=== PATIENT | male | born 1990 | race Caucasian/White ===

== ENCOUNTER → 2017-11-26 16:23 | Outpatient (REF) | payer OTHER, SELFPAY ==
[2017-11-15 11:33] LABS: Copper, Serum or Plasma 127 ug/dL (72-166)
== END ==
LOC: LABSPEC 16:23
DX: R20.9 Unspecified disturbances of skin sensation (principal)
CPT/HCPCS: 82525

== ENCOUNTER 2018-07-15 09:13 | Emergency (ER) | payer OTHER, SELFPAY ==
[2018-07-15 09:14] VITALS: BP 129/87; PULSE 79; RESP 16; TEMP 36.8; O2SAT 99; BMI 28.5
--- NOTE | 2018-07-15 09:29 | RAD_ITS ---
STUDY: X-RAY CHEST REASON FOR EXAM: Female, 28 years old. Chest pain. TECHNIQUE: Single AP portable view of the chest. COMPARISON: Comparison is made with prior study dated June 10, 2015. FINDINGS: EKG electrodes are seen. The lungs are clear and expanded. There is no demonstrated pleural abnormality. Normal size heart. Normal mediastinum and brenden. Normal visualized pulmonary arteries. Normal visualized aortic arch and descending thoracic aorta. Normal visualized thoracic spine. Normal visualized ribs, clavicles, and shoulders. There is no demonstrated abnormality of the visualized soft tissue structures of the upper abdomen. RAD/Chest 1 View (Portable) IMPRESSION: Normal x-ray examination of the chest. Electronically Signed: Alexys Brewster MD at 10:05 EST Tel [phone], Service support ,
--- NOTE | 2018-07-15 09:29 | EKG12_ITS ---
Test Reason : CP Blood Pressure : / mmHG Vent. Rate : 083 BPM Atrial Rate : 083 BPM P-R Int : 128 ms QRS Dur : 078 ms QT Int : 400 ms P-R-T Axes : 050 032 050 degrees QTc Int : 470 ms Normal sinus rhythm Normal ECG Confirmed by DEA DUMONT MD ([id number]), video tape editor SHOLA BORDEN ([id number] on 07/17/2018 3:22:15 PM Referred By: VICKIE Confirmed By:DEA DUMONT MD
--- NOTE | 2018-07-15 09:40 | ED.DCSUM_ITS ---
- ER Visit Summary Date of Service: 07/15/18 Chief Complaint: Dizzy History of Present Illness: The patient is a 28 F with dizziness that started around 8 AM this morning while sitting at work. She also had chest and upper abdominal pain. She was sweaty and felt her heart racing. Her hands were numb and locking up. She had nausea and vomiting. She has had similar symptoms in the past with POTS. She also has a history of fibromyalgia, chronic Lyme disease, mitral valve prolapse, hypertension, and ADHD. Physical Examination: Afebrile and vital signs unremarkable. Patient alert and oriented. Head and neck normal inspection. HEENT exam unremarkable. Neck is nontender. Heart regular rate and rhythm. Lungs clear. Abdomen soft and nontender. No focal or lateralizing neurologic arise grossly. Cranial nerves grossly intact. Skin appears normal in color without rash, pallor, or diaphoresis. Test Results: EKG showed sinus rhythm at a rate of 83. No sign of acute ischemic or infarction changes. Laboratory studies, chest x-ray, and orthostatic vital signs pending at the time of this dictation. Emergency Department Course and Treatment: Patient was placed on a monitor. Treated with normal saline IV, morphine, and Zofran. Will reassess. Orthostatic vital signs show tachycardia, but her blood pressure was stable. Her chest x-ray was unremarkable. Laboratory studies showed a white count 11.2 and glucose 126. Liver panel and lipase normal. Troponin normal. test negative. Patient felt better after fluids and pain medication. I am not sure what is causing her symptoms. It may be an exacerbation of 1 of her chronic disease processes. She may be coming down with a viral infection. I have nothing to suggest any [employer], ACS, PE, thoracic aortic pathology or any significant res piratory, vascular, or GI pathology. I believe the patient is appropriate for outpatient follow-up. Treatment Plan: As above Disposition: Discharged Impression: 1. Dizziness This note was generated with [employer] dictation software. It may contain incorrect words, spelling, and punctuation that were not noted in review of the chart prior to signing ED Disposition - Plan for ED Patient: Disposition: Home or Assisted Living Chief Complaint: Chest Pain Instructions: ED Dizziness [facility] Referrals: Valentín Cardoso DO [Primary Care Provider] -
[2018-07-15] MEDS: 0.9% Normal Saline 1,000 ML 1000 ML IV (09:49)
[2018-07-15] MEDS: Morphine 4 MG/ML Syringe IV (09:49)
[2018-07-15] MEDS: Ondansetron 4 MG/2 ML Vial IV (09:49)
[2018-07-15 09:52] LABS: Absolute Lymphocyte Count 2.94 X10^3/ul (0.83-4.51); Absolute Neutrophil Count 7.1 X10^3/uL (2.0-7.7); Basophil# 0.03 X10^3/uL; Basophil% 0.3 % (0-1); Eosinophil# 0.06 X10^3/uL; Eosinophils% 0.5 % (0-5); Hematocrit 42.8 % (37-47); Hemoglobin 14.5 g/dl (12.0-15.0); Lymphocyte # 2.94 X10^3/ul (4.0); Lymphocyte % 26.4 % (19-41); Mean Corp Hgb Conc 33.9 g/gl (32-36); Mean Corpuscular Hgb 30.7 pg (27.0-32.0); Mean Corpuscular Volume 90.5 fL (81-99); Neutrophil % 63.6 % (47-70); POSITIVE COUNT NO; POSITIVE DIFFERENTIAL NO; POSITIVE MORPHOLOGY NO; Platelet Count 411 K/mm3 (150-450); RBC Distribution Width CV 12.3 % (11.6-14.6); RBC Distribution Width SD 40.6 fl (35.1-43.9); Red Blood Count 4.73 M/mm3 (4.2-5.4); White Blood Count 11.2 K/mm3 (4.4-11.0)
[2018-07-15 09:54] VITALS: O2SAT 95
[2018-07-15 10:06] LABS: ALB/GLOB Ratio 0.8 RATIO (0.9-2.4); AST(SGOT) 17 U/L (15-37); Alanine Aminotransfer ALT/SGPT 28 U/L (13-56); Albumin, Serum 3.9 g/dL (3.2-5.0); Alkaline Phosphatase 116 U/L (45-117); Anion Gap 13 (5-15); BUN 11 mg/dL (7-18); BUN/Creat Ratio 11.1 RATIO (10-20); Calcium,Total 9.8 mg/dL (8.5-10.1); Chloride 102 mmol/L (98-107); Creatinine, Serum 0.99 mg/dL (0.55-1.02); EST Glomerular Filtration Rate 70 mL/min (>60); Est Glom Filt Rate - Afr Amer 85 mL/min (>60); Globulin 4.8 g/dL (2.2-4.2); Glucose 126 mg/dL (74-106); Lipase 335 U/L (73-393); Protein, Total 8.7 g/dL (6.4-8.2); Sodium Level 136 mmol/L (136-145)
[2018-07-15 10:08] VITALS: BP 154/114; BP 155/103; BP 165/145; PULSE 109; PULSE 87; PULSE 92
[2018-07-15 10:14] LABS: Pregnancy, Serum, hCG Quali. NEGATIVE Negative (0-9 Nonpreg)
[2018-07-15 10:54] VITALS: BP 137/100; PULSE 77; RESP 17; O2SAT 100
--- NOTE | 2018-07-15 11:23 | ED.DEP ---
ED Disposition - Plan for ED Patient: Chief Complaint: Chest Pain Instructions: ED Dizziness [facility] Referrals: Valentín Cardoso DO [Primary Care Provider] -
[2018-07-15 11:25] VITALS: BP 138/79; PULSE 72; RESP 15; O2SAT 98
== END 2018-07-15 11:27 | disposition home or self-care (01) ==
LOC: ED 09:48
PROVIDERS: Emergency Provider Emergency Medicine; Family Provider Family Medicine; PCP Family Medicine
DX: R42 Dizziness and giddiness (principal); M79.7 Fibromyalgia; A69.20 Lyme disease, unspecified; I10 Essential (primary) hypertension; R11.2 Nausea with vomiting, unspecified; R10.9 Unspecified abdominal pain; R07.9 Chest pain, unspecified; F90.9 Attention-deficit hyperactivity disorder, unspecified type; I34.1 Nonrheumatic mitral (valve) prolapse
CPT/HCPCS: 71045; 80053; 83690; 84484; 84703; 85025; 93005; 96361; 96374; 96375; 99285; J7030; A4216; J2405

== ENCOUNTER → 2020-08-12 11:02 | Outpatient (CLI) | payer OTHER, SELFPAY ==
--- NOTE | 2020-08-12 11:04 | US_ITS ---
STUDY: THYROID ULTRASOUND REASON FOR EXAM: Female, 30 years old. NODULE FELT ON EXAM -- FAMILY HX OF GRAVES DISEASE TECHNIQUE: Ultrasound evaluation of the thyroid was performed with real-time and static tinoco-scale imaging. COMPARISON: None. FINDINGS: RIGHT LOBE: The right lobe of the thyroid gland measures 5 cm x 1.2 cm x 1.2 cm. There is a homogeneous echotexture. There are no demonstrated solid, cystic or complex lesions. LEFT LOBE: The left lobe of the thyroid gland measures 4.9 cm x 1.5 cm x 1 cm. There is a homogeneous echotexture. There are no demonstrated solid, cystic or complex lesions. ISTHMUS: The isthmus measures 2.4 mm. The regional lymph nodes are normal. US/Thyroid IMPRESSION: Normal ultrasound examination of the thyroid. Electronically Signed: Alexys Brewster, at 12:52 EST , Service support ,
== END ==
PROVIDERS: PCP Student in an Organized Health Care Education/Training Program; Referring Provider Nurse Practitioner Family; Visit Provider Nurse Practitioner Family
DX: E04.1 Nontoxic single thyroid nodule (principal)
CPT/HCPCS: 76536

== ENCOUNTER → 2020-08-22 06:42 | Outpatient (CLI) | payer OTHER, SELFPAY ==
--- NOTE | 2020-08-22 08:34 | TELEMED_ITS ---
[facility] has confirmed receipt of a request for visit. This document confirms receipt of the order initiating the consult. To find the results of the consultation, please view the patient's reports for the scanned Telemed Consult.
== END ==
PROVIDERS: PCP Student in an Organized Health Care Education/Training Program
DX: R56.9 Unspecified convulsions (principal)
CPT/HCPCS: 95819

== ENCOUNTER 2021-12-27 18:10 | Outpatient (CLI) | payer OTHER, SELFPAY ==
[2021-12-27 18:38] LABS: Amphetamine Urine VISTA NEGATIVE (<1000 ng/mL); Barbiturate Urine VISTA NEGATIVE (< 200 ng/mL); Benzodiazepine Urine VISTA NEGATIVE (< 200 ng/mL); Cocaine Urine VISTA NEGATIVE (< 300 ng/mL); Ecstacy Urine VISTA NEGATIVE (< 500 ng/mL); Methadone Urine VISTA NEGATIVE (< 300 ng/mL); PCP Urine VISTA NEGATIVE (< 25 ng/mL); THC Urine VISTA NEGATIVE (< 50 ng/mL); Vista UDS pH Range 4
== END 2021-12-27 23:59 | disposition home or self-care (01) ==
PROVIDERS: PCP Nurse Practitioner Family; Referring Provider Anesthesiology Pain Medicine; Visit Provider Anesthesiology Pain Medicine
DX: F11.20 Opioid dependence, uncomplicated (principal)
CPT/HCPCS: 80307

== ENCOUNTER → 2022-03-09 | Outpatient (CLI) | payer OTHER, SELFPAY ==
[2022-03-16 00:08] LABS: Alternaria tenuis <0.10 kU/L (Class 0); Ash, White <0.10 kU/L (Class 0); Aspergillus fumigatus <0.10 kU/L (Class 0); Bermuda Grass <0.10 kU/L (Class 0); Birch <0.10 kU/L (Class 0); Black Walnut <0.10 kU/L (Class 0); Cat Hair / Dander,Stand <0.10 kU/L (Class 0); Cedar, Mountain <0.10 kU/L (Class 0); Cladosporium herbarum <0.10 kU/L (Class 0); Cockroach, American <0.10 kU/L (Class 0); Cottonwood <0.10 kU/L (Class 0); D farinae Mite <0.10 kU/L (Class 0); D pteronyssinus <0.10 kU/L (Class 0); Dog Epithelia <0.10 kU/L (Class 0); Elm, American White <0.10 kU/L (Class 0); Immunoglobulin E 15 IU/mL (6-495); Maple/Box Elder <0.10 kU/L (Class 0); Mulberry, White <0.10 kU/L (Class 0); Oak, White <0.10 kU/L (Class 0); Pecan <0.10 kU/L (Class 0); Penicillium Notatum <0.10 kU/L (Class 0); Pigweed, Rough <0.10 kU/L (Class 0); Ragweed, Short/Common <0.10 kU/L (Class 0); Russian Thistle <0.10 kU/L (Class 0); Sheep Sorrel <0.10 kU/L (Class 0); Sycamore, American <0.10 kU/L (Class 0); Timothy Grass <0.10 kU/L (Class 0)
[2022-03-16 01:07] LABS: Clam <0.10 kU/L (Class 0); Codfish <0.10 kU/L (Class 0); Corn <0.10 kU/L (Class 0); Egg, White <0.10 kU/L (Class 0); Milk (Cow) <0.10 kU/L (Class 0); Peanut <0.10 kU/L (Class 0); SCALLOP <0.10 kU/L (Class 0); Shrimp <0.10 kU/L (Class 0); Soybean <0.10 kU/L (Class 0); Walnut, (Food) <0.10 kU/L (Class 0); Wheat <0.10 kU/L (Class 0)
[2022-03-16 08:31] LABS: Mouse Urine <0.10 kU/L (Class 0)
[2022-03-20 13:53] LABS: SESAME SEED <0.10 kU/L (Class 0)
== END | disposition home or self-care (01) ==
LOC: LAB 14:43
PROVIDERS: PCP Nurse Practitioner Family; Visit Provider Otolaryngology
DX: T78.40XA Allergy, unspecified, initial encounter (principal)
CPT/HCPCS: 36415; 82785; 86003

== ENCOUNTER → 2022-05-08 | Outpatient (CLI) | payer OTHER, SELFPAY ==
[2022-05-08 14:43] LABS: ALB/GLOB Ratio 1.3 RATIO (0.9-2.4); AST(SGOT) 15 U/L (15-37); Alanine Aminotransfer ALT/SGPT 28 U/L (13-56); Albumin, Serum 4.3 g/dL (3.2-5.0); Alkaline Phosphatase 81 U/L (45-117); Anion Gap 7 (5-15); BUN 9 mg/dL (7-18); Calcium,Total 9.4 mg/dL (8.5-10.1); Chloride 110 mmol/L (98-107); Creatinine, Serum 0.82 mg/dL (0.55-1.02); EST Glomerular Filtration Rate 85 mL/min (>60); Est Glom Filt Rate - Afr Amer 103 mL/min (>60); Globulin 3.3 g/dL (2.2-4.2); Glucose 100 mg/dL (74-106); Potassium 3.4 mmol/L (3.5-5.1); Protein, Total 7.6 g/dL (6.4-8.2); Sodium Level 141 mmol/L (136-145); Thyroid Stim Hormone (TSH) 1.43 uIU/mL (0.358-3.74)
[2022-05-08 14:54] LABS: Vitamin D,25 Hydroxy 48.6 ng/mL
== END | disposition home or self-care (01) ==
LOC: LAB 12:51
PROVIDERS: PCP Family Medicine; Referring Provider Internal Medicine Endocrinology, Diabetes & Metabolism; Visit Provider Internal Medicine Endocrinology, Diabetes & Metabolism
DX: E83.52 Hypercalcemia (principal); E55.9 Vitamin D deficiency, unspecified; R94.6 Abnormal results of thyroid function studies
CPT/HCPCS: 36415; 80053; 82306; 84443

== ENCOUNTER → 2022-05-30 | Outpatient (CLI) | payer OTHER, SELFPAY ==
[2022-05-30 12:56] LABS: Anion Gap 8 (5-15); BUN 11 mg/dL (7-18); BUN/Creat Ratio 12.9 RATIO (10-20); Calcium,Total 9.2 mg/dL (8.5-10.1); Chloride 108 mmol/L (98-107); Creatinine, Serum 0.85 mg/dL (0.55-1.02); EST Glomerular Filtration Rate 81 mL/min (>60); Est Glom Filt Rate - Afr Amer 99 mL/min (>60); Glucose 116 mg/dL (74-106); Potassium 3.6 mmol/L (3.5-5.1); Sodium Level 138 mmol/L (136-145)
== END | disposition home or self-care (01) ==
PROVIDERS: PCP Family Medicine
DX: E83.52 Hypercalcemia (principal)
CPT/HCPCS: 36415; 80048

== ENCOUNTER → 2022-08-10 | Outpatient (CLI) | payer OTHER, SELFPAY ==
[2022-08-10 13:24] LABS: Vitamin D,25 Hydroxy 34.1 ng/mL
[2022-08-10 13:30] LABS: ALB/GLOB Ratio 1.2 RATIO (0.9-2.4); AST(SGOT) 14 U/L (15-37); Alanine Aminotransfer ALT/SGPT 22 U/L (13-56); Alkaline Phosphatase 73 U/L (45-117); Anion Gap 7 (5-15); BUN 13 mg/dL (7-18); BUN/Creat Ratio 15.2 RATIO (10-20); Calcium,Total 8.7 mg/dL (8.5-10.1); Chloride 108 mmol/L (98-107); Creatinine, Serum 0.86 mg/dL (0.55-1.02); EST Glomerular Filtration Rate 81 mL/min (>60); Est Glom Filt Rate - Afr Amer 98 mL/min (>60); Globulin 3.4 g/dL (2.2-4.2); Glucose 98 mg/dL (74-106); Potassium 3.5 mmol/L (3.5-5.1); Protein, Total 7.4 g/dL (6.4-8.2); Sodium Level 139 mmol/L (136-145)
== END | disposition home or self-care (01) ==
LOC: LAB 12:41
PROVIDERS: PCP Family Medicine
DX: E55.9 Vitamin D deficiency, unspecified (principal); R94.6 Abnormal results of thyroid function studies
CPT/HCPCS: 36415; 80053; 82306; 84443

== ENCOUNTER → 2023-06-26 | Outpatient (CLI) | payer OTHER, SELFPAY ==
[2023-07-02 15:14] LABS: Chlamydia By Nucleic Acid AMP Negative
[2023-07-02 15:15] LABS: Gonococcus By Nucleic Acid AMP Negative; HPV Reflexed? NOT INDICATED
== END | disposition home or self-care (01) ==
LOC: LABSPEC 16:19
PROVIDERS: PCP Family Medicine; Visit Provider Family Medicine
DX: Z01.419 Encounter for gynecological examination (general) (routine) without abnormal findings (principal)
CPT/HCPCS: 87491; 87591; 88142

== ENCOUNTER → 2024-12-22 | Outpatient (CLI) | payer BC, SELFPAY ==
[2024-12-22 17:24] LABS: Cholesterol 178 mg/dL (<=200); High Density Lipoprotein 68 mg/dL; Low Density Lipoprotein Calc. 96 mg/dL; Triglycerides 69 mg/dL; Very Low Density Lipoprotein 14 mg/dL (5-40); cholesterol:hdl ratio screen 2.62
[2024-12-22 17:25] LABS: ALB/GLOB Ratio 1.7 RATIO (0.9-2.4); AST(SGOT) 20 U/L (<=31); Alanine Aminotransfer ALT/SGPT 18 U/L (<=34); Albumin, Serum 4.4 g/dL (3.5-5.0); Alkaline Phosphatase 111 U/L (35-104); Anion Gap 10 (5-15); BUN 12 mg/dL (4-19); BUN/Creat Ratio 15.8 RATIO (10-20); Calcium,Total 9.3 mg/dL (7.6-11.0); Carbon Dioxide 19.7 mmol/L (21.0-32.0); Chloride 107 mmol/L (98-108); Creatinine, Serum 0.75 mg/dL (0.70-1.20); EST Glomerular Filtration Rate 106 (>60); Globulin 2.6 g/dL (2.2-4.2); Glucose 92 mg/dL (70-99); Potassium 4.2 mmol/L (3.3-5.1); Sodium Level 137 mmol/L (133-145); Total Bilirubin < 0.15 mg/dL (0.00-1.30)
== END | disposition home or self-care (01) ==
LOC: BIMLAB 15:41
PROVIDERS: PCP Family Medicine; Referring Provider Family Medicine; Visit Provider Family Medicine
DX: E78.5 Hyperlipidemia, unspecified (principal)
CPT/HCPCS: 36415; 80053; 80061